=== PATIENT | female | born 1965 | race Caucasian/White ===

== ENCOUNTER → 2020-02-28 | Outpatient (CLI) | payer OTHER ==
[~2020-02-28] MED LIST: ASPIRIN81 MG PO; B COMPLEX WITH1 EACH PO; BUDESONIDE-FO10.2 GM INH; BUSPIRONE HCL30 MG PO; CELEBREX 200MG200 MG PO; CENTRUM COMPLE1 EACH PO; CLARITIN10 M2 PO; CYCLOBENZAPRINE5 MG PO; DESYREL 50 MG T50 MG PO; DEXAMETHASONE6 MG PO; DITROPAN XL10 MG PO; DOXYCYCLINE HY100 MG PO; DOXYCYCLINE MO100 MG PO; ELIQUIS 5 MG TAB5 MG PO; GLUCOPHAGE 500500 MG PO; HUMALOG 10100 UNITS/ SC; HYDROXYZINE HCL25 MG PO; IPRAT-ALBUT 0.5-3 ML NEB; JARDIANCE10 MG PO; LANTUS INS100 UTS/M1 SC; METFORMIN HCL850 MG PO; NEXIUM40 MG PO; NORVASC5 MG PO; SINGULAIR10 MG PO; STOOL SOFTENER100 MG PO; TESSALON PERLE100 MG PO; TOPROL XL50 MG PO; TRILEPTAL300 MG PO; VENTOLIN HFA 66.7 GM INH
== END ==
LOC: CT 12:30
DX: C82.11 Follicular lymphoma grade II, lymph nodes of head, face, and neck (principal); R91.1 Solitary pulmonary nodule
CPT/HCPCS: 71260; Q9967

== ENCOUNTER → 2020-03-22 | Outpatient (CLI) | payer OTHER ==
[2020-03-22 09:53] LABS: HEMOGLOBIN 14.2 gm/dl (12.3-15.3); RED BLOOD COUNT 4.66 M/UL (4.00-5.10); WHITE BLOOD COUNT 7.2 K/UL (4.5-11.0)
== END ==
LOC: US 08:56
PROVIDERS: Internal Medicine
DX: C85.11 Unspecified B-cell lymphoma, lymph nodes of head, face, and neck (principal); C82.11 Follicular lymphoma grade II, lymph nodes of head, face, and neck; K11.8 Other diseases of salivary glands; R91.1 Solitary pulmonary nodule; Z71.2 Person consulting for explanation of examination or test findings; Z79.01 Long term (current) use of anticoagulants
CPT/HCPCS: 36415; 85027; 85610; 85730

== ENCOUNTER 2020-04-13 17:47 | Inpatient (IN) | payer OTHER ==
[~2020-04-13] VITALS: Ht 160 cm; Wt 129.4 kg
[2020-04-13 19:10] LABS: HEMOGLOBIN 15.3 gm/dl (12.3-15.3); RED BLOOD COUNT 4.95 M/UL (4.00-5.10)
[2020-04-13 19:24] LABS: BUN/CREATININE RATIO 20 (0-10)
[2020-04-13] MEDS ORDERED: CENTRUM COMPLE1 EACH PO (22:22)
[2020-04-13] MEDS ORDERED: B COMPLEX WITH1 EACH PO (22:22)
[2020-04-13] MEDS ORDERED: NORVASC5 MG PO (22:23)
[2020-04-13] MEDS ORDERED: SINGULAIR10 MG PO (22:23)
[2020-04-13] MEDS ORDERED: TOPROL XL50 MG PO (22:24)
[2020-04-13] MEDS ORDERED: DESYREL 50 MG T50 MG PO (22:24)
[2020-04-13] MEDS ORDERED: ELIQUIS 5 MG TAB5 MG PO (22:25)
[2020-04-13] MEDS ORDERED: CLARITIN10 M2 PO (22:25)
[2020-04-13] MEDS ORDERED: BUSPIRONE HCL30 MG PO (22:25)
[2020-04-13] MEDS ORDERED: DITROPAN XL10 MG PO (22:26)
[2020-04-13] MEDS ORDERED: NEXIUM40 MG PO (22:26)
[2020-04-13] MEDS ORDERED: STOOL SOFTENER100 MG PO (22:27)
[2020-04-13] MEDS ORDERED: HYDROXYZINE HCL25 MG PO (22:28)
[2020-04-13] MEDS ORDERED: TRILEPTAL300 MG PO (22:30)
[2020-04-13] MEDS ORDERED: CELEBREX 200MG200 MG PO (22:31)
[2020-04-13] MEDS ORDERED: BUDESONIDE-FO10.2 GM INH (22:32)
[2020-04-13] MEDS ORDERED: VENTOLIN HFA 66.7 GM INH (22:32)
[2020-04-13] MEDS ORDERED: ASPIRIN81 MG PO (22:33)
[2020-04-13] MEDS ORDERED: CYCLOBENZAPRINE5 MG PO (22:33)
[2020-04-13] MEDS ORDERED: DOXYCYCLINE MO100 MG PO (22:33)
[2020-04-14 06:45] LABS: HEMOGLOBIN 14.1 gm/dl (12.3-15.3); RED BLOOD COUNT 4.62 M/UL (4.00-5.10)
[2020-04-14 06:47] LABS: WHITE BLOOD COUNT 3.4 K/UL (4.5-11.0)
[2020-04-14 07:01] LABS: BUN/CREATININE RATIO 18 (0-10)
[2020-04-15 03:47] LABS: HEMOGLOBIN 13.6 gm/dl (12.3-15.3); RED BLOOD COUNT 4.43 M/UL (4.00-5.10)
[2020-04-15 04:28] LABS: BUN/CREATININE RATIO 22 (0-10)
[2020-04-16 06:08] LABS: HEMOGLOBIN 13.2 gm/dl (12.3-15.3); RED BLOOD COUNT 4.32 M/UL (4.00-5.10); WHITE BLOOD COUNT 5.8 K/UL (4.5-11.0)
[2020-04-16 06:55] LABS: BUN/CREATININE RATIO 29 (0-10)
[2020-04-17 03:36] LABS: HEMOGLOBIN 13.6 gm/dl (12.3-15.3); RED BLOOD COUNT 4.48 M/UL (4.00-5.10)
[2020-04-17 03:38] LABS: WHITE BLOOD COUNT 7.5 K/UL (4.5-11.0)
[2020-04-17 04:02] LABS: BUN/CREATININE RATIO 29 (0-10)
[2020-04-17] MEDS ORDERED: DEXAMETHASONE6 MG PO ×2 (11:56→12:02)
[2020-04-17] MEDS ORDERED: IPRAT-ALBUT 0.5-3 ML NEB ×2 (11:56→12:02)
[2020-04-17] MEDS ORDERED: HUMALOG 10100 UNITS/ SC (11:56)
[2020-04-17] MEDS ORDERED: LANTUS INS100 UTS/M1 SC (11:56)
[2020-04-17] MEDS ORDERED: GLUCOPHAGE 500500 MG PO (11:56)
[2020-04-17] MEDS ORDERED: ASPIRIN81 MG PO ×2 (11:56→12:02)
[2020-04-17] MEDS ORDERED: METFORMIN HCL850 MG PO (11:59)
[2020-04-17] MEDS ORDERED: JARDIANCE10 MG PO (11:59)
[2020-04-17] MEDS ORDERED: DOXYCYCLINE HY100 MG PO (12:02)
[2020-04-17] MEDS ORDERED: TESSALON PERLE100 MG PO (12:47)
--- NOTE | 2020-04-17 12:54 | NUR ---
PATIENT PULSE OX RA; 96-98%
== END 2020-04-17 16:35 | disposition home or self-care (01) | DRG 177 ==
LOC: ER1 17:47 → CDU 20:26 → MED SURG 4 20:26
PROVIDERS: Internal Medicine; Preventive Medicine Occupational Medicine; ADMIT Internal Medicine
DX: U07.1 COVID-19 (principal); J12.82 Pneumonia due to coronavirus disease 2019; J96.01 Acute respiratory failure with hypoxia; C85.90 Non-Hodgkin lymphoma, unspecified, unspecified site; Z68.43 Body mass index [BMI] 50.0-59.9, adult; E11.9 Type 2 diabetes mellitus without complications; Z79.4 Long term (current) use of insulin; J45.909 Unspecified asthma, uncomplicated; I10 Essential (primary) hypertension; E66.01 Morbid (severe) obesity due to excess calories; R53.81 Other malaise; Z86.711 Personal history of pulmonary embolism; Z86.718 Personal history of other venous thrombosis and embolism; Z79.82 Long term (current) use of aspirin; Z79.01 Long term (current) use of anticoagulants; Z79.899 Other long term (current) drug therapy
CPT/HCPCS: 0240U; 36415; 71045; 80048; 80053; 81001; 82550; 82553; 82962; 83605; 83690; 83874; 84484; 85025; 85379; 85652; 86140; 86900; 86901; 86927; 87086; 93005; 94640; 94664; 94760; 96365; 96366; 96367; 96372; 96375; 99285; J0456; J1100; J1650; J2405; J7030